=== PATIENT | female | born 1985 | race Caucasian/White ===

== ENCOUNTER 2020-03-11 10:55 | Observation (INO) ==
[2020-03-11] MEDS ORDERED: MORPHINE 4 MG/1 ML VIAL IV STA (11:15)
[2020-03-11] MEDS ORDERED: SODIUM CHLORIDE 0.9% 500 ML IV STA (11:15)
[2020-03-11] MEDS ORDERED: ONDANSETRON 4 MG/2 ML VIAL IV STA (11:16)
[2020-03-11] MEDS ORDERED: PIPERACILLIN/TAZOBACTAM 3,375 MG in SODIUM CHLORIDE 0.9% 100 ML IV STA (11:16)
[2020-03-11 12:12] LABS: Basophils # 0.1 10*3/uL (0.0-0.2); Basophils % 0.8 % (0.0-0.8); Eosinophils # 0.2 10*3/uL (0.0-0.87); Eosinophils % 1.9 % (0.00-10.9); Hematocrit 41.6 VOL% (35.7-47.0); Hemoglobin 13.3 GM/DL (12.0-16.0); Immature Granulocytes % 0.6 %; Immature Granulocytes Absolute 0.07 #; Lymphocytes # 3.1 10*3/uL (1.4-4.0); Lymphocytes % 25.9 % (21.3-54.2); Mean Corpuscular Volume 92.9 FL (87-102); Mean Platelet Volume 11.6 FL (9.6-12.0); Monocytes % 7.8 % (1.7-12.7); Platelet Count 186 T/CUMM (130-400); Red Blood Count 4.48 MC/CUMM (3.8-5.5); Red Cell Distribution Width 14.5 % (9.3-17.3); White Blood Count 11.9 T/CUMM (4-12)
[2020-03-11 12:26] LABS: Calcium 8.6 MG/DL (8.5-10.1); Osmolality,Calculated 271.8 MOS/KG (273-304)
[2020-03-11] MEDS ORDERED: ACETAMINOPHEN 325 MG TABLET PO PRN (12:59)
[2020-03-11] MEDS ORDERED: ONDANSETRON 4 MG/2 ML VIAL IV PRN ×2 (12:59→14:17)
[2020-03-11] MEDS ORDERED: HYDROmorphone 2 MG/1 ML VIAL IV PRN ×2 (13:09→14:17)
[2020-03-11] MEDS ORDERED: BISACODYL 5 MG TABLET PO PRN (13:09)
[2020-03-11] MEDS: HYDROmorphone 2 MG/1 ML VIAL IV PRN ×2 (13:28→23:48)
[2020-03-11] MEDS ORDERED: MEPERIDINE 25 MG/1 ML VIAL ONE ×2 (14:11→14:24)
[2020-03-11] MEDS ORDERED: PROMETHAZINE 25 MG/1 ML VIAL ONE (14:12)
[2020-03-11] MEDS ORDERED: propofoL 200 MG/20 ML VIAL IV ONE (14:13)
[2020-03-11] MEDS ORDERED: DEXAMETHASONE 4 MG/1 ML VIAL ONE (14:14)
[2020-03-11] MEDS ORDERED: ONDANSETRON 4 MG/2 ML VIAL ONE (14:14)
[2020-03-11] MEDS ORDERED: fentaNYL 100 MCG/2 ML VIAL ONE (14:14)
[2020-03-11] MEDS ORDERED: LACTATED RINGERS 1,000 ML IV ONE (14:14)
[2020-03-11] MEDS ORDERED: MIDAZOLAM 2 MG/2 ML VIAL ONE (14:14)
[2020-03-11] MEDS ORDERED: LIDOCAINE 2% 5 ML VIAL ONE (14:14)
[2020-03-11] MEDS ORDERED: SEVOFLURANE 1 UNIT/15 MINUTE INH ONE (14:14)
[2020-03-11] MEDS: MEPERIDINE 25 MG/1 ML VIAL IV PRN ×2 (14:15→14:25)
[2020-03-11] MEDS ORDERED: PROMETHAZINE INJ 25 MG in SODIUM CHLORIDE 0.9% 50 ML IV PRN (14:17)
[2020-03-11] MEDS ORDERED: diphenhydrAMINE 50 MG/1 ML VIAL IV PRN (14:17)
[2020-03-11] MEDS ORDERED: KETOROLAC 30 MG/1 ML VIAL ONE (14:24)
[2020-03-11] MEDS ORDERED: ACETAMINOPHEN 1,000 MG/100 ML VIAL IV ONE (14:24)
[2020-03-11] MEDS ORDERED: KETOROLAC 30 MG/1 ML VIAL IV STA (14:33)
[2020-03-11] MEDS ORDERED: ACETAMINOPHEN INJ 1,000 MG in PREMIX 1 EACH IV ONE (14:33)
[2020-03-11] MEDS: PIPERACILLIN/TAZOBACTAM 3,375 MG in SODIUM CHLORIDE 0.9% 100 ML IV SCH (20:16)
[2020-03-11] MEDS: KETOROLAC 15 MG/1 ML VIAL IV PRN (20:25)
[2020-03-12] MEDS: PIPERACILLIN/TAZOBACTAM 3,375 MG in SODIUM CHLORIDE 0.9% 100 ML IV SCH (04:00)
[2020-03-12] MEDS: HYDROmorphone 2 MG/1 ML VIAL IV PRN (05:16)
[2020-03-12] MEDS ORDERED: PANTOPRAZOLE 40 MG TABLET PO SCH (09:00)
[2020-03-12] MEDS: KETOROLAC 15 MG/1 ML VIAL IV PRN (10:57)
[2020-03-12 11:54] VITALS: BP 109/55
== END 2020-03-12 11:42 | disposition home or self-care (01) ==
LOC: N.ED 10:55 → N.EDINP 10:55 → N.TELES 15:15
PROVIDERS: ADMIT Surgery; ATTEND Surgery